=== PATIENT | female | born 1955 | race Two or more races ===

== ENCOUNTER → 2023-01-01 | Outpatient (CLI) | payer OTHER ==
[~2023-01-01] MED LIST: LEVAQUIN750 MG PO; NEURONTIN300 MG PO; ORPH100T PO; PERCOCET 5/3251 TAB PO; XARELTO10 MG PO; ZOCOR20 MG PO
== END | disposition home or self-care (01) ==
LOC: RAD 11:20
PROVIDERS: ATTEND Orthopaedic Surgery
DX: M25.561 Pain in right knee (principal); M25.562 Pain in left knee